=== PATIENT | male | born 1940 | race Caucasian/White ===

== ENCOUNTER → 2020-12-31 09:30 | Outpatient (CLI) | payer MEDICARE ==
[~2020-12-31 09:30] MED LIST: ACETAMINOPHEN325 MG PO; ADVAIR 250-501 EAC1 IH; CARAFATE1 G PO; COLACE100 MG PO; FLUTICASONE PRO16 GM NASAL; HUMULIN R100 UNIT/1 SC; HYDRALAZINE HCL50 MG PO; K-DUR20 MEQ PO; LISINOPRIL20 MG PO; PEPCID AC20 MG PO; PROCARDIA XL60 MG PO; SYNTHROID125 MCG PO; ULTRAM50 MG PO
[2021-01-05 10:22] VITALS: BMI 19.0
== END | disposition home or self-care (01) ==
LOC: D.US 12-03 10:00
PROVIDERS: ATTEND Internal Medicine
DX: N18.6 End stage renal disease (principal)

== ENCOUNTER 2021-01-05 07:41 | Day surgery (SDC) | payer MEDICARE, MEDICAID ==
[~2021-01-05] VITALS: Ht 188 cm; Wt 67.1 kg
--- NOTE | ~2021-01-05 | OP ---
PATIENT NAME: ANANYA CRAIN MEDICAL RECORD: [id number] :41 LOCATION:D.OPS ADMISSION DATE: SURGEON: LESLIE DE MD DATE OF OPERATION: 01/05/2021 He is an outpatient who was operated and dictated today on 01/05/2021, referred by Maxi Castillo MD. PREOPERATIVE DIAGNOSES: End-stage renal disease and dependence on hemodialysis. POSTOPERATIVE DIAGNOSES: End-stage renal disease and dependence on hemodialysis. OPERATION PERFORMED: Creation of a left proximal radial artery to cephalic vein arteriovenous fistula. SURGEON: Leslie De MD. ANESTHESIA: Regional nerve block plus TIVA per LABEL PRINTING MACHINIST. PREOPERATIVE NOTE: This 80-year-old gentleman is on dialysis and needs a long-term access. He has had vein mapping, which indicates likely satisfactory veins for creation of a primary fistula in the left arm, possibly basilic, although especially in the antecubital fossa, there is a large median cephalic vein. He is here for that fistula creation at this time. DESCRIPTION OF PROCEDURE: Under regional nerve block and additional TIVA, the patient was prepped and draped in a sterile manner. The regional nerve block caused very significant vasodilatation and he had very satisfactory veins, especially from the antecubital space upwards for anastomosis and he had a median cephalic and median basilic branch, which were large as well as a median antebrachial vein. The brachial artery was fairly large and I thought that we could probably do a PRA-based fistula and lessen the risk of postoperative steal syndrome. A vertical incision was made over the brachial artery trifurcation and this was additionally extended medially as a hockey stick shaped incision. The brachial artery was exposed and noted to be soft and without atherosclerotic change. It was encircled proximally with a Silastic loop. Distal dissection exposed the origin of the radial, ulnar and interosseous arteries and these were all individually controlled with Silastic loops. The median cubital vein and median cephalic and basilic veins were dissected from the surrounding structures. Tributaries were divided between ligatures of Vicryl or Hemoclips and I mobilized the median antebrachial vein to the distal end of the incision where it was ligated and divided and bevelled and prepared for anastomosis. The vein was carefully dilated and then flushed with heparinized saline and treated with topical papaverine. The artery was occluded with Silastic loops and an arteriotomy about 5 mm in diameter was made in the proximal proximal radial artery and the vein was anastomosed into vein to side of artery with running 7-0 Prolene. When completed and the occluding loops were released, excellent flow developed within the fistula manifested by a strong palpable thrill and continuous pulsatile Doppler signals. There was preservation of flow in the radial artery at the wrist and to the ulnar artery at the wrist with fairly normal high-resistance flow pattern. OPERATIVE REPORT [id number] ANANYA CRAIN The wound was irrigated with saline and closed with interrupted inverted 3-0 Vicryl and then running intracuticular 4-0 Stratafix and Dermabond glue. It was dressed with Maxorb AG, Tegaderm, and Cavilon skin prep. The patient was awakened and returned to the bed in outpatient in stable condition. He will be allowed to go home later today and is to continue his home medications and his regular dialysis schedule there at the skilled nursing. He was given a prescription for 20 tramadol tablets 1 or 2 p.o. q.4-6 hours p.r.n. for pain. He is to leave the operative dressing dry and clean and intact and I will remove it when he comes to see me in the office in about a week or 10 days. TRANSINT:[id number] Voice Confirmation ID: [id number] DOCUMENT ID: [id number] LESLIE DE MD CC: MAXI CASTILLO [id number] DICTATION DATE: 01/05/211405 CORPORATE AUDITOR: 01/05/212219 [facility] 01/05/21 [facility] [address] [id number]
[2021-01-05 08:08] LABS: BASOPHILS 0.7 % (0-2); EOSINOPHILS 4.3 % (0-7); HEMOGLOBIN 11.4 g/dL (13.5-17.5); IMMATURE GRANULOCYTES 0.2 % (0-5); LYMPHOCYTE ABS# 1.65 10x3/uL (1.32-3.57); LYMPHOCYTES 27.5 % (15-50); MCH 28.4 pg (26.0-34.0); MCHC 31.7 g/dL (31.0-37.0); MCV 89.8 fL (80.0-100.0); MEAN PLATELET VOLUME 9.6 fL (7.4-10.4); NEUTROPHIL ABS# 3.01 10x3/uL (1.78-5.38); NEUTROPHILS 50.3 % (40-80); PLATELET COUNT 190 10x3/uL (130-400); RBC 4.01 10x6/uL (4.20-6.10); RDW 16.8 % (11.5-14.5)
[2021-01-05 08:15] LABS: ANION GAP 10.7 mmol/L (8-16); CALCIUM 8.5 mg/dL (8.5-10.1); CARBON DIOXIDE 29.7 mmol/L (21.0-32.0); CREATININE - SERUM 4.5 mg/dL (0.6-1.3); POTASSIUM - SERUM 4.4 mmol/L (3.5-5.1)
[2021-01-05] MEDS ORDERED: ADVAIR 250-501 EAC1 IH (09:41)
[2021-01-05] MEDS ORDERED: COLACE100 MG PO (09:43)
[2021-01-05] MEDS ORDERED: PEPCID AC20 MG PO (09:44)
[2021-01-05] MEDS ORDERED: FLUTICASONE PRO16 GM NASAL (09:46)
[2021-01-05] MEDS ORDERED: HYDRALAZINE HCL50 MG PO (09:48)
[2021-01-05] MEDS ORDERED: LISINOPRIL20 MG PO (09:49)
[2021-01-05] MEDS ORDERED: PROCARDIA XL60 MG PO (09:50)
[2021-01-05] MEDS ORDERED: HUMULIN R100 UNIT/1 SC (09:53)
[2021-01-05] MEDS ORDERED: K-DUR20 MEQ PO (09:55)
[2021-01-05] MEDS ORDERED: CARAFATE1 G PO (09:56)
[2021-01-05] MEDS ORDERED: SYNTHROID125 MCG PO (09:57)
[2021-01-05] MEDS ORDERED: ACETAMINOPHEN325 MG PO (09:59)
[2021-01-05 10:11] LABS: INR 1.04 (0.85-1.17); PROTIME 12.6 SECONDS (11.6-15.0)
[2021-01-05 10:22] VITALS: Ht 188 cm; Wt 67.1 kg
[2021-01-05] MEDS ORDERED: ULTRAM50 MG PO (13:51)
--- NOTE | 2021-01-05 15:05 | NUR ---
DISCHARGED HOME VIA WHEELCHAIR TO PRIVATE VEHICLE WITH DAUGHTER, TO RETURN TO [facility] WHERE PATIENT IS A RESIDENT. REPORT CALLED TO LORENZO NOVAK LPN AT [facility]
[2021-01-07 22:07] LABS: AMITRIPTYLINE <20 ng/mL (Not Estab.); NORTRIPTYLINE <20 ng/mL (Not Estab.); TOTAL (AMITRIPT+NORTRIPT) <40 ng/mL (80-200)
== END 2021-01-05 15:05 | disposition home or self-care (01) ==
LOC: D.OPS 07:41
PROVIDERS: Surgery; ATTEND Internal Medicine Nephrology
DX: N18.6 End stage renal disease (principal); Z99.2 Dependence on renal dialysis; I10 Essential (primary) hypertension; E11.9 Type 2 diabetes mellitus without complications; J45.909 Unspecified asthma, uncomplicated; E07.9 Disorder of thyroid, unspecified